=== PATIENT | male | born 1985 | race Caucasian/White ===

== ENCOUNTER 2018-01-16 19:25 | Emergency (ER) | payer BC, OTHER ==
[~2018-01-16] VITALS: Ht 177.8 cm; Wt 77.1 kg
--- OUTSIDE RECORDS SUMMARY | 2018-01-16 19:32 | XMS REPORT ---
Author Author AMBIKA Chawla [facility] Address Unknown Care Team Providers Care Pathology Technologist Name Role Phone AMBIKA Chawla Unavailable PROBLEMS Type Condition ICD9-CM Code [id number] Code Onset Dates Condition Status SNOMED Code Problem Generalized anxiety disorder 300.02 Active 14088960 Problem Anxiety state, unspecified 300.00 Active 604553191 ALLERGIES No Known Allergies SOCIAL HISTORY No smoking Hx information available PLAN OF CARE VITAL SIGNS MEDICATIONS No Known Medications RESULTS No Results PROCEDURES Procedure Date Ordered Related Diagnosis Body Site Dental Prepay for Future Services Jun 09, 2016 IMMUNIZATIONS No Known Immunizations
--- OUTSIDE RECORDS SUMMARY | 2018-01-16 19:32 | XMS REPORT ---
Author Author MARVA QUINTANA Organization [employer] Address Unknown Phone Unavailable Care Team Providers Care Print Line Inspector Name Role Phone MARVA QUINTANA CP Unavailable Allergies, Adverse Reactions, Alerts Substance Reaction Event Type Poison Jen Info Not Available Non Drug Allergy Problems Problem Type Condition Code Onset Dates Condition Status Problem Anxiety state, unspecified 300.00 Active Assessment Encounter for dental examination Z01.20 Active Problem Generalized anxiety disorder 300.02 Active Assessment Dental caries K02.9 Active Medications Medication Code System Code Instructions Start Date End Date Status Dosage [facility] [address]-57 5-325 MG Orally every 6 hrs Apr 02, 2015 Apr 06, 2015 1 tablet as needed Procedures Procedure Coding System Code Date INTRAORL-PERIAPICAL 1 FILM 80486 CPT-4 D0220 Apr 02, 2015 BITEWING - SINGLE FILM CPT-4 D0270 Apr 02, 2015 LTD ORAL EVALUATION - PROBLEM FOCUS CPT-4 D0140 Apr 02, 2015 EXTRAC ERUPTED TOOTH/EXPOSED ROOT CPT-4 D7140 Apr 02, 2015 Vital Signs Date/Time: Apr 02, 2015 Blood Pressure Diastolic 79 mmHg Blood Pressure Systolic 140 mmHg Height 70.5 in Results No Known Results Summary Purpose [employer] Submission
--- OUTSIDE RECORDS SUMMARY | 2018-01-16 19:32 | XMS REPORT ---
Author Author AMBIKA Chawla [facility] Address Unknown Care Team Providers Care Technical Operator Name Role Phone AMBIKA hCawla Unavailable PROBLEMS Type Condition ICD9-CM Code [id number] Code Onset Dates Condition Status SNOMED Code Problem Anxiety state, unspecified 300.00 Active 970445366 Problem Generalized anxiety disorder 300.02 Active 08210036 ALLERGIES Substance Reaction Event Type Date Status Poison Jen Unknown Non Drug Allergy Jun, Active SOCIAL HISTORY No smoking Hx information available PLAN OF CARE Activity Details Follow Up prn Reason:eleuterio/hygiene/te VITAL SIGNS Height 70.5 in 2016-07-01 Blood pressure systolic 134 mmHg 2016-07-01 Blood pressure diastolic 83 mmHg 2016-07-01 MEDICATIONS No Known Medications RESULTS No Results PROCEDURES Procedure Date Ordered Related Diagnosis Body Site PANORAMIC FILM SEE ALSO CODE 90323 Jul 01, 2016 EXTRAC ERUPTED TOOTH/EXPOSED ROOT Jul 01, 2016 Billing Notes on claim Jul 01, 2016 IMMUNIZATIONS No Known Immunizations
--- OUTSIDE RECORDS SUMMARY | 2018-01-16 19:32 | XMS REPORT ---
Author Author FUNMI BARBOZA Organization [facility] Address [address] [place] [address] Care Team Providers Care Supercharge Repair Supervisor Name Role Phone FUNMI BARBOZA Unavailable PROBLEMS Type Condition ICD9-CM Code [id number] Code Onset Dates Condition Status SNOMED Code Problem Anxiety state, unspecified 300.00 Active 084870172 Problem Generalized anxiety disorder 300.02 Active 36812852 ALLERGIES Substance Reaction Event Type Date Status Poison Jen Unknown Non Drug Allergy Jul, Active SOCIAL HISTORY Never Assessed PLAN OF CARE Activity Details Follow Up prn Reason: VITAL SIGNS Height 70.5 in 2016-08-08 Weight 172.0 lbs 2016-08-08 Temperature 97.8 degrees Fahrenheit 2016-08-08 Heart Rate 86 bpm 2016-08-08 Respiratory Rate 20 2016-08-08 BMI 24.33 kg/m2 2016-08-08 Blood pressure systolic 140 mmHg 2016-08-08 Blood pressure diastolic 82 mmHg 2016-08-08 MEDICATIONS Medication Instructions Dosage Frequency Start Date End Date Duration Status Amoxicillin 500 MG Orally every 8 hrs 1 capsule 8h Jul, Jul, 7 days Active RESULTS No Results PROCEDURES No Known procedures IMMUNIZATIONS No Known Immunizations
--- OUTSIDE RECORDS SUMMARY | 2018-01-16 19:32 | XMS REPORT ---
Author Author AMBIKA Chawla Organization [facility] Address Unknown Care Team Providers Care Hydrology Professor Name Role Phone AMBIKA Chawla Unavailable PROBLEMS Type Condition ICD9-CM Code [id number] Code Onset Dates Condition Status SNOMED Code Problem Anxiety state, unspecified 300.00 Active 880289336 Problem Generalized anxiety disorder 300.02 Active 72502675 ALLERGIES Substance Reaction Event Type Date Status Poison Jen Unknown Non Drug Allergy Apr, Active SOCIAL HISTORY No smoking Hx information available PLAN OF CARE Activity Details Follow Up prn Reason:te#2 VITAL SIGNS Height 70.5 in 2016-05-01 Blood pressure systolic 104 mmHg 2016-05-01 Blood pressure diastolic 83 mmHg 2016-05-01 MEDICATIONS Medication Instructions Dosage Frequency Start Date End Date Duration Status [place] 5-325 MG Orally every 6 hrs 1 tablet as needed 6h Apr, Apr, 4 days Active Amoxicillin 500 MG Orally 4 times a day 1 capsule 6h Apr, Apr, 7 days Active RESULTS No Results PROCEDURES Procedure Date Ordered Related Diagnosis Body Site LTD ORAL EVALUATION - PROBLEM FOCUS May 01, 2016 INTRAORL-PERIAPICAL 1 FILM 53466 May 01, 2016 IMMUNIZATIONS No Known Immunizations
--- OUTSIDE RECORDS SUMMARY | 2018-01-16 19:32 | XMS REPORT ---
Author Author ELSY SIDHU Organization [employer] Address Unknown Phone Unavailable Care Team Providers Care Children'S Lunchroom Supervisor Name Role Phone ELSY SIDHU CP Unavailable Allergies, Adverse Reactions, Alerts Substance Reaction Event Type Poison Jen Info Not Available Non Drug Allergy Problems Problem Type Condition Code Onset Dates Condition Status Problem Anxiety state, unspecified 300.00 Active Assessment Acute sinusitis, unspecified J01.90 Active Problem Generalized anxiety disorder 300.02 Active Assessment Strep throat J02.0 Active Medications Medication Code System Code Instructions Start Date End Date Status Dosage Amoxicillin [facility] [address]-52 500 MG Orally every 12 hrs May 15, 2015 May 25, 2015 2 tablets Flonase [facility] [address]-40 50 MCG/ACT Nasally Once a day May 15, 2015 1 spray in each nostril Procedures Procedure Coding System Code Date STREP A ASSAY W/OPTIC CPT-4 89328 May 15, 2015 Office Visit, Est Pt., Level 3 CPT-4 74692 May 15, 2015 MEASURE BLOOD OXYGEN LEVEL CPT-4 88632 May 15, 2015 Vital Signs Date/Time: May 15, 2015 Temperature 98.1 F Weight 164 lbs Height 70.5 in Oximetry 100 % Blood Pressure Diastolic 82 mmHg Blood Pressure Systolic 130 mmHg Cardiac Monitoring Heart Rate 86 bpm BMI 23.20 Index Results Name Result Date Reference Range Unit Abnormality Flag STREP A (IN HOUSE) ----STREP A positive [id number] ----Control + [id number] ----Lot # [id number] ----Exp date november [id number] Summary Purpose [employer] Submission
[2018-01-16] MEDS ORDERED: TETANUS,DIPTH,PERTUSS P/F (BOOSTRIX) 0.5 ML VIAL IM ONE (20:15)
--- NOTE | 2018-01-16 20:17 | ED Upper Extremity ---
General Chief Complaint: Laceration Stated Complaint: L HAND LAC Nursing Triage Note: MOVING COUCH 2O MIN SHANK MAKER AND LEFT HAND CAUGHT GLASS CAUSING APPROX 2 INCH LAC TO SIDE OF LEFT HAND BETWEEN PINKY FINGER AND WRIST, PRESENTED WITH HAND WRAPPED IN T SHIRT, NO BLOOD DRAINING FROM SITE AT THIS TIME. 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 He thought he could get the bleeding to stop on his own but since it was so long he decided to come in and have it put back together. He is hoping to have bleeding down. He says his last tetanus shot was in 2004. He's having no fevers chills nausea vomiting Allergies and Home Medications Allergies Coded Allergies: No Known Drug Allergies (Unverified Allergy, Mild, 11/21/08) Patient Home Medication List Home Medication List Reviewed: Yes Constitutional: No chills, No diaphoresis EENTM: No ear pain, No eye pain Respiratory: No cough, No short of breath Cardiovascular: No chest pain, No edema Past Wenkjcw-Vlxsdk-Tmydof Hx Patient Social History Alcohol Use: Denies Use Recreational Drug Use: No Smoking Status: Never a Smoker 2nd Hand Smoke Exposure: No Recent Foreign Travel: No Contact w/Someone Who Travel: No Recent Infectious Disease Expo: No Recent Hopitalizations: No Physical Abuse: No Sexual Abuse: No Mistreated: No Fear: No Immunizations Up To Date Tetanus Booster (TDap): More than 5yrs Seasonal Allergies Seasonal Allergies: No Past Medical History Surgeries: No Respiratory: No Neurological: No Genitourinary: No Gastrointestinal: No Musculoskeletal: No Endocrine: No HEENT: No Cancer: No Psychosocial: No Nursing Suicide Risk Score: 0 Integumentary: No Blood Disorders: No Adverse Reaction/Blood Tranf: No Physical Exam Vital Signs Vital Signs - First Documented 01/16/18 19:34 Temp 98.1 Pulse 105 Resp 17 B/P (MAP) 179/96 (123) Pulse Ox 98 O2 Delivery Room Air Capillary Refill : Less Than 3 Seconds Height, Weight, BMI Height: 5'10.00" Weight: 170lbs. oz. 77.989022vy; BMI Method:Stated General Appearance: WD/WN, no apparent distress HEENT: PERRL/EOMI, pharynx normal Cardiovascular: normal peripheral pulses, regular rate, rhythm Respiratory: no respiratory distress, no accessory muscle use Wrist: Yes normal inspection, Yes non-tender, Yes no evidence of injury, Yes normal ROM Hand: non-tender, normal ROM, Left, laceration (laterally along the fifth metatarsal about 5 cm in length half of the wound is superficial and the other half is down to the subcutaneous tissue) Procedures/Interventions Wound Location: Upper Extremities Other Wound Location Left hand lateral to the fifth metatarsal Wound Length (cm): 5 Wound's Depth, Shape: superficial, linear, flap, sub Q Wound Explored: clean Irrigated w/ Saline (ccs): 100 Betadine Prep?: Yes (chlorhexidine soap water) Anesthesia: 1% Lidocaine Volume Anesthetic (ccs): 3 Wound Debrided: minimal Suture: Prolene Suture Size: 4-0 Number of Sutures: 3 Layer Closure?: 1 Progress Wound was cleaned thoroughly with chlorhexidine soap water flushed. The was a small 1 cm flap parallel to the larger incision. He was insistent on using blue so we did blew the top half of the wound but the bottom half was not amenable to gluing so we did place 3 stitches of 4-0 Prolene after infiltrating with 2-3 cc of 1% lidocaine without epinephrine. Wound was cleaned thoroughly and dressed with triple antibiotic ointment and a dressing and patient tolerated the procedure very well. Progress/Results/Core Measures Results/Orders Vital Signs/I&O 01/16/18 19:34 Temp 98.1 Pulse 105 Resp 17 B/P (MAP) 179/96 (123) Pulse Ox 98 O2 Delivery Room Air Blood Pressure Mean: 123 Departure Impression Primary Impression: Hand laceration Qualified Codes: S61.412A - Laceration without foreign body of left hand, initial encounter Disposition: HOME, SELF-CARE Condition: Improved Departure-Patient Inst. Decision time for Depature: 20:16 Referrals: NO,LOCAL PHYSICIAN (PCP/Family) Primary Care Physician Patient Instructions: Laceration Repair With Stitches (DC) Add. Discharge Instructions: Keep the wound clean with soap and water. The glue will flake off on its own over time. The stitches need to come out in about 10-14 days and you can return to the ER to have this done or do it with your own doctor. There is no extra charge if you come back to the ER. If you begin to have a lot of redness, swelling, loss of function in the hand, increasing pain, fevers, chills, nausea then you should return to the doctor sooner for reexamination. If you have some bleeding you can apply direct pressure and ice for 40 minutes over the hand and hold the hand above the level of your heart and the bleeding should stop. If you have pain you can use Tylenol 1000 mg every 8 hours and/or ibuprofen 800 mg every 8 hours. All discharge instructions reviewed with patient and/or family. Voiced understanding. NAEEM SALGADO Jan 16, 2018 20:17
[2018-01-16 20:26] VITALS: BP 162/95
== END 2018-01-16 20:24 | disposition home or self-care (01) ==
LOC: EDUNIT# 19:25 → ER 19:29
DX: S61.412A Laceration without foreign body of left hand, initial encounter (principal); W25.XXXA Contact with sharp glass, initial encounter
CPT/HCPCS: 90471; 90715

== ENCOUNTER 2018-01-25 17:36 | Emergency (ER) | payer BC ==
--- OUTSIDE RECORDS SUMMARY | 2018-01-25 23:01 | XMS REPORT | Continuity of Care Document ---
Author Author [facility] Address Unknown Phone Unavailable Allergies Active Description Code Type Severity Reaction Onset Reported/Identified Relationship to Patient Clinical Status Yes poison penny OA 06/28/2012 Yes poison penny OA N/A N/A 06/28/2012 Medications There is no data. Problems Date Dx Coded Attending Type Code Diagnosis Diagnosed By 06/23/2012 ASA SHIPLEY APRN 300.02 AN GEN ANXIETY 06/23/2012 ASA SHIPLEY APRN 300.02 AN GEN ANXIETY 06/28/2012 ASA SHIPLEY APRN 300.00 ANXIETY STATE UNSPECIFIED 06/28/2012 ASA SHIPLEY APRN 300.00 ANXIETY STATE UNSPECIFIED Procedures Code [place] [address] PSYCH DIAGNOSTIC EVALUATION 06/28/2012 Results There is no data. Encounters ACCT No. Visit Date/Time Discharge Status Pt. Type Provider Facility Loc./Unit Complaint [id number] 06/07/2013 09:02:00 06/07/2013 23:59:59 [facility] Outpatient ASA SHIPLEY APRN [id number] 06/28/2012 13:17:00 06/28/2012 23:59:59 [facility] Outpatient ASA SHIPLEY APRN [id number] 12/04/2017 09:00:00 12/04/2017 23:59:59 [facility] Outpatient ASA SHIPLEY APRN [facility]
--- OUTSIDE RECORDS SUMMARY | 2018-01-25 23:01 | XMS REPORT ---
Author Author FUNMI BARBOZA Organization [facility] Address [address] [place] [address] Care Team Providers Care Upper Cutter Machine Name Role Phone FUNMI BARBOZA Unavailable PROBLEMS Type Condition ICD9-CM Code DNF36-YX Code Onset Dates Condition Status SNOMED Code Problem Anxiety state, unspecified 300.00 Active 889974812 Problem Generalized anxiety disorder 300.02 Active 77294862 ALLERGIES Substance Reaction Event Type Date Status Poison Jen Unknown Non Drug Allergy Sep, Active ENCOUNTERS Encounter Location Date Diagnosis [facility] [id number] [place] [address] [phone] Nov, Dental caries K02.9 [facility] [id number] [place] [address] [id number] October, Dental examination Z01.20 [facility] [id number] [place] [address] [id number] October, [facility] [id number] [place] [address] [id number] October, Dental examination Z01.20 [facility] [id number] [place] [phone] Sep, Oral abscess K12.2 [facility] [id number] [place] [phone] Mar, Pharyngitis due to other organism J02.8 [facility] [address] [phone] Aug, Dental caries K02.9 [facility] [id number] [place] [address] [id number] Aug, Dental examination Z01.20 [facility] [address] [address] [address] Jul, 2016 Abscessed tooth K04.7 [facility] [id number] [place] [phone] Jun, Dental caries K02.9 and Dental examination Z01.20 [facility] [id number] [place] [phone] May, Encounter for other administrative examinations Z02.89 [facility] [id number] [place] [address] [id number] 10 Apr, 2016 Dental examination Z01.20 [facility] [address] [phone] 24 Apr, 2015 Acute sinusitis, unspecified J01.90 and Strep throat J02.0 [facility] [id number] [place] [address] [id number] Mar, Encounter for dental examination Z01.20 and Dental caries K02.9 [facility] [id number] [place] [phone] 25 Feb, 2015 Dental abscess 522.5 [facility] [id number] [place] [phone] 14 Sep, 2014 [facility] [id number] [place] [phone] 13 Sep, 2014 [facility] [id number] [place] [phone] May, [facility] [id number] [place] [phone] May, [facility] [id number] [place] [phone] 07 Jul, 2012 [facility] [id number] [place] [phone] 07 Jun, 2012 [facility] [id number] [place] [phone] Jun, [facility] [address] [facility] [id number] [address] Jun, IMMUNIZATIONS No Known Immunizations SOCIAL HISTORY Never Assessed REASON FOR VISIT Broken tooth, dental told pt that he needs an abx before it can be pulled JStrasserRN PLAN OF CARE Activity Details Follow Up prn Reason: VITAL SIGNS Height 70.5 in 2017-09-23 Weight 183.0 lbs 2017-09-23 Temperature 98.4 degrees Fahrenheit 2017-09-23 Heart Rate 100 bpm 2017-09-23 Respiratory Rate 22 2017-09-23 BMI 25.88 kg/m2 2017-09-23 Blood pressure systolic 138 mmHg 2017-09-23 Blood pressure diastolic 74 mmHg 2017-09-23 MEDICATIONS Medication Instructions Dosage Frequency Start Date End Date Duration Status Amoxicillin 500 MG Orally every 8 hrs 1 capsule 8h Sep, Sep, 7 days Active Flonase 50 MCG/ACT Nasally Once a day 1 spray in each nostril 24h Apr, 30 day(s) Not-Taking RESULTS No Results PROCEDURES No Known procedures INSTRUCTIONS MEDICATIONS ADMINISTERED No Known Medications
== END 2018-01-25 18:10 | disposition left against medical advice (07) ==
LOC: EDUNIT# 17:36 → ER 17:38
DX: Z48.02 Encounter for removal of sutures (principal)